=== PATIENT | female | born 1950 | race Caucasian/White ===

== ENCOUNTER 2021-01-05 16:58 | Emergency (ER) | payer OTHER ==
[~2021-01-05] VITALS: Ht 167.6 cm; Wt 86.2 kg
--- NOTE | 2021-01-05 17:51 | NUR ---
us at bedside for assessment. NAD noted at this time in pt.
--- NOTE | 2021-01-05 18:21 | NUR ---
chart up for recheck. pt laying back in bed with blankets watching television. NAD noted at this time.
[2021-01-05 19:15] VITALS: BP 123/63
[2021-01-05] MEDS ORDERED: FUROSEMIDE 20 MG TABLET ONE (19:21)
[2021-01-05] MEDS ORDERED: FUROSEMIDE 20 MG TABLET PO ONE (19:30)
== END 2021-01-05 20:01 | disposition home or self-care (01) ==
LOC: ED 19:55
DX: R60.0 Localized edema (principal); Z90.710 Acquired absence of both cervix and uterus; I10 Essential (primary) hypertension; E78.5 Hyperlipidemia, unspecified
CPT/HCPCS: 99284